=== PATIENT | female | born 1975 | race Caucasian/White ===

== ENCOUNTER 2017-12-22 15:06 | Emergency (ER) | payer BC ==
[2017-12-22] MEDS ORDERED: DEXAMETHASONE SOD PHOS INJ 10 MG/1 ML VIAL IM ONE (17:44)
[2017-12-22] MEDS ORDERED: KETOROLAC TROMETHAMINE 60 MG/2 ML SDV IM ONE (17:44)
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
[2017-12-22 17:58] VITALS: BP 133/64
== END 2017-12-22 18:03 | disposition home or self-care (01) ==
LOC: ER 15:06
DX: T14.8XXA Other injury of unspecified body region, initial encounter (principal); X58.XXXA Exposure to other specified factors, initial encounter; M54.42 Lumbago with sciatica, left side
CPT/HCPCS: 99283; J1885; J1100